=== PATIENT | male | born 1995 | race Two or more races ===

== ENCOUNTER 2018-04-12 21:11 | Emergency (ER) | payer OTHER ==
[2018-04-12 21:21] VITALS: BP 102/70
--- NOTE | 2018-04-12 21:27 | ED Physician Documentation ---
PD HPI NVD - Stated complaint Stated Complaint: V/D/CHILLS/NUMBNESS - Chief complaint Chief Complaint: Abd Pain - History obtained from History obtained from: Patient - History of Present Illness Timing - onset: Enter time (14:00), Today Timing - details: Abrupt onset Pain level now: 8 Associated symptoms: Abdominal pain (cramping), Dysuria (burning). No: Fever Improved by: Other (nothing) Worsened by: Eating Similar symptoms before: Other (similar symptoms T+R from an urgent care center months ago) Recently seen: Not recently seen - Additonal information Additional information: c/o nausea, vomiting, diarrhea, generalized myalgias that include headache and neck pain. onset 2 pm today Review of Systems Constitutional: reports: Myalgias. denies: Fever, Chills, Sweats Cardiac: reports: Reviewed and negative Respiratory: reports: Dyspnea. denies: Cough GI: reports: Abdominal Pain, Nausea, Vomiting, Diarrhea : reports: Dysuria. denies: Frequency, Hematuria Musculoskeletal: reports: Back pain Neurologic: reports: Headache PD PAST MEDICAL HISTORY - Past Medical History : Other (epidydimitis) - Past Surgical History Past Surgical History: No - Present Medications Home Medications: Ambulatory Orders Medication Instructions Recorded Confirmed Ondansetron Odt [Zofran] 4 mg TL Q6H PRN #10 tablet 04/13/18 - Allergies Allergies/Adverse Reactions: Allergies Allergy/AdvReac Type Severity Reaction Status Date / Time ciprofloxacin [From Cipro] Allergy Unknown Verified 04/12/18 21:22 - Living Situation Living Arrangement: reports: At home PD ED PE NORMAL - Vitals Vital signs reviewed: Yes - General General: Alert and oriented X 3, Well developed/nourished, Other (appears slightly anxious) - HEENT HEENT: Other (pasty/tacky mucous membranes) - Cardiac Cardiac: RRR, No murmur - Respiratory Respiratory: No respiratory distress, Clear bilaterally - Abdomen Abdomen: Normal bowel sounds, Soft, Non tender, Non distended - Back Back: Other (bilateral CVA tenderness) - Derm Derm: Normal color, Warm and dry Results - Vitals Vitals: Vital Signs - 24 hr 04/12/18 04/13/18 21:16 00:35 Temperature 36.6 C 36.8 C Heart Rate 77 91 Respiratory 20 18 Rate Blood Pressure 102/70 O2 Saturation 100 100 Oxygen O2 Source Room air - Labs Labs: Laboratory Tests 04/12/18 04/12/18 04/12/18 21:48 21:48 23:44 WBC 17.7 H RBC 5.66 Hgb 17.9 Hct 51.9 MCV 91.7 MCH 31.5 H MCHC 34.4 RDW 12.8 Plt Count 235 MPV 7.0 L Neut # (Auto) 15.6 H Lymph # (Auto) 0.8 L [place] # (Auto) 1.0 Eos # (Auto) 0.3 Baso # (Auto) 0.1 Absolute Nucleated RBC 0.02 Nucleated RBC % 0.1 Sodium 137 Potassium 3.1 L Chloride 101 Carbon Dioxide 19 L Anion Gap 17.0 H BUN 19 Creatinine 1.0 Estimated GFR (MDRD) 92 Glucose 104 H Calcium 9.8 Total Bilirubin 2.6 H AST 27 ALT 15 Alkaline Phosphatase 58 Total Protein 9.0 H Albumin 5.6 H Globulin 3.4 Albumin/Globulin Ratio 1.6 Lipase 28 Urine Color YELLOW Urine Clarity CLEAR Urine pH 5.5 Ur Specific [place] >=1.030 H Urine Protein NEGATIVE Urine Glucose (UA) NEGATIVE Urine Ketones >=80 H Urine Occult Blood NEGATIVE Urine Nitrite NEGATIVE Urine Bilirubin NEGATIVE Urine Urobilinogen 0.2 (NORMAL) Ur Leukocyte Esterase NEGATIVE Ur Microscopic Review NOT INDICATED Urine Culture Comments NOT INDICATED PD MEDICAL DECISION MAKING - ED course Complexity details: reviewed results, re-evaluated patient, considered differential, d/w patient Departure - Departure Disposition: 01 Home, Self Care Clinical Impression: Gastroenteritis Condition: Good Instructions: ED Gastroenteritis Viral Follow-Up: [facility] [Provider Group] [facility] [Provider Group] Prescriptions: Ondansetron Odt [Zofran] 4 mg TL Q6H PRN #10 tablet PRN Reason: Nausea / Vomiting Discharge Date/Time: 04/13/18 00:40
[2018-04-12] MEDS ORDERED: SODIUM CHLORIDE 0.9% 1,000 ML IV STA ×2 (21:44→22:21)
[2018-04-12] MEDS ORDERED: ONDANSETRON 4 MG/2 ML VIAL IVP STA ×2 (21:44→23:07)
[2018-04-12 21:55] LABS: BASOPHILS # (AUTO) 0.1 10^3/uL (0.0-0.1); BASOPHILS % (AUTO) 0.5 %; EOSINOPHILS # (AUTO) 0.3 10^3/uL (0.0-0.7); EOSINOPHILS % (AUTO) 1.5 %; HGB - HEMOGLOBIN 17.9 g/dL (14.0-18.0); LYMPHOCYTES # (AUTO) 0.8 10^3/uL (1.5-3.5); LYMPHOCYTES % (AUTO) 4.3 %; MEAN CORPUSCULAR HEMOGLOBIN 31.5 pg (27.0-31.0); MEAN CORPUSCULAR HGB CONC 34.4 g/dL (32.0-36.0); MEAN CORPUSCULAR VOLUME 91.7 fL (80.0-94.0); MONOCYTES % (AUTO) 5.4 %; NEUTROPHILS # (AUTO) 15.6 10^3/uL (1.5-6.6); NEUTROPHILS % (AUTO) 88.3 %; PLT - PLATELET COUNT 235 10^3/uL (130-450); RED BLOOD COUNT 5.66 10^6/uL (4.70-6.10); RED CELL DISTRIBUTION WIDTH 12.8 % (12.0-15.0); WHITE BLOOD COUNT 17.7 x10^3/uL (4.8-10.8)
[2018-04-12 22:05] LABS: ALBUMIN 5.6 g/dL (3.2-5.5); ALBUMIN/GLOBULIN RATIO 1.6 (1.0-2.2); BILIRUBIN,TOTAL 2.6 mg/dL (0.2-1.0); CALCIUM 9.8 mg/dL (8.5-10.3)
[2018-04-12] MEDS ORDERED: PROMETHAZINE INJ 25 MG in SODIUM CHLORIDE 0.9% 50 ML IV STA (23:41)
[2018-04-12] MEDS ORDERED: KETOROLAC 60 MG/2 ML VIAL IVP STA (23:42)
[2018-04-12 23:57] LABS: GLUCOSE, URINE (UA) NEGATIVE (NEGATIVE); KETONES,URINE (UA) >=80 mg/dL (NEGATIVE); LEUKOCYTE ESTERASE, URINE NEGATIVE (NEGATIVE); NITRITE,URINE NEGATIVE (NEGATIVE); OCCULT BLOOD,URINE NEGATIVE (NEGATIVE); PH,URINE 5.5 PH (5.0-7.5); PROTEIN,URINE NEGATIVE (NEGATIVE); UROBILINOGEN,URINE 0.2 (NORMAL) E.U./dL (NORMAL)
[2018-04-13 00:06] LABS: BILIRUBIN,URINE NEGATIVE (NEGATIVE); CLARITY,URINE CLEAR (CLEAR)
== END 2018-04-13 00:40 | disposition home or self-care (01) ==
LOC: ED 21:11
DX: K52.9 Noninfective gastroenteritis and colitis, unspecified (principal)
CPT/HCPCS: 36415; 80053; 81003; 83690; 85025; 96361; 96365; 96375; 96376; 99283; J7040; 81001; 87086